=== PATIENT | male | born 1980 | race Two or more races ===

== ENCOUNTER 2017-08-16 03:15 | Emergency (ER) | payer SELFPAY ==
[~2017-08-16] VITALS: Ht 175.3 cm; Wt 88.5 kg
--- NOTE | 2017-08-16 03:15 | NUR ---
"RT UNDER THE BREAST PAIN THAT WOKE ME UP"; DENIES SOB/N/V. "IT IS HARD TO BREATH SOMETIEMS AND HURTS MAINLY WHEN I BREATH IN/OUT". LUNGS OSUNDS CLEAR AND S1 S2 HEARD UPON AUSCULTATION. VSS NAD. A/OX4 WITH GF AT BEDSIDE. WILL CONTINUE TO MONITOR FOR ANY CHANGES DURING THE SHIFT.
--- NOTE | 2017-08-16 03:31 | NUR ---
EKG AT BEDSIDE
--- NOTE | 2017-08-16 03:34 | NUR ---
XRAY CALLED FOR CXR
--- NOTE | 2017-08-16 03:42 | NUR ---
CXR DONE AT THE BEDSIDE.
[2017-08-16 04:03] LABS: BASOPHILS % (AUTO) 0.5 % (0.0-2.0); HEMATOCRIT 39 % (39-51); HEMOGLOBIN 13.3 g/dL (13.5-17.5); LYMPHOCYTES # (AUTO) 2.5 /CMM (0.8-4.8); LYMPHOCYTES % (AUTO) 30.6 % (20.0-44.0); MEAN CORPUSCULAR HGB CONC 34 g/dl (31.0-36.0); MEAN CORPUSCULAR VOLUME 90 fL (80-96); MONOCYTES # (AUTO) 0.5 /CMM (0.1-1.30); MONOCYTES % (AUTO) 6.5 % (2.0-12.0); NEUTROPHILS # (AUTO) 4.7 /CMM (1.8-8.9); NEUTROPHILS % (AUTO) 58.4 % (43.0-81.0); PLATELET COUNT (AUTO) 221 /CMM (150-450); RDW COEFFICIENT OF VARIATION 11.6 (11.5-15.0); RED BLOOD CELL COUNT(AUTO) 4.31 MIL/uL (4.5-6.0)
[2017-08-16 04:10] LABS: CREATININE 0.9 mg/dL (0.6-1.3); POTASSIUM 4.2 mmol/L (3.5-5.1)
[2017-08-16 04:41] LABS: APPEARANCE,URINE CLEAR (CLEAR); BILIRUBIN,URINE NEGATIVE (NEGATIVE); BLOOD, URINE NEGATIVE Ery/uL (NEGATIVE); COLOR,URINE YELLOW (YELLOW); KETONES,URINE NEGATIVE (NEGATIVE); LEUKOCYTE ESTERASE ,URINE NEGATIVE (NEGATIVE); NITRITE, URINE NEGATIVE (NEGATIVE); PROTEIN,URINE NEGATIVE (NEGATIVE); UGLUCOSE NEGATIVE (NEGATIVE); UROBILINOGEN,URINE 0.2 EU/dL (0.2)
[2017-08-16] MEDS ORDERED: KETOROLAC TROMETHAMINE INJ 30 MG/ML VIAL ONE (05:01)
[2017-08-16] MEDS ORDERED: ONDANSETRON HCL/PF 4 MG/2 ML VIAL ONE (05:20)
[2017-08-16] MEDS ORDERED: MORPHINE SULFATE INJ 2 MG/ML DISP.SYRIN ONE (05:20)
[2017-08-16] MEDS ORDERED: MORPHINE SULFATE INJ 2 MG/ML DISP.SYRIN IV ONE (05:30)
[2017-08-16] MEDS ORDERED: ONDANSETRON HCL/PF 4 MG/2 ML VIAL IV ONE (05:30)
[2017-08-16] MEDS ORDERED: KETOROLAC TROMETHAMINE INJ 30 MG/ML VIAL IV ONE (05:30)
--- NOTE | 2017-08-16 05:35 | NUR ---
IV removed. Catheter intact and site benign. Pressure and 4x4 applied to site. No bleeding noted.Patient discharged to home in stable condition. Written and verbal after care instructions given. Patient verbalizes understanding of instruction AND RX. PT AMBULATED OUT WITH A STEADY GAIT. VSS.
[2017-08-16 05:37] VITALS: BP 113/72
== END 2017-08-16 05:38 | disposition home or self-care (01) ==
LOC: ER 03:18
DX: K82.8 Other specified diseases of gallbladder (principal); K80.50 Calculus of bile duct without cholangitis or cholecystitis without obstruction; G43.809 Other migraine, not intractable, without status migrainosus
CPT/HCPCS: 36415; 71045; 76705; 80048; 81001; 84484; 85025; 93005; 96374; 96375; 99285; A4606; J1885; J2270; J2405; Z7610; 81000-TC